=== PATIENT | male | born 1960 | race Asian ===

== ENCOUNTER 2020-06-17 18:04 | Emergency (ER) | payer OTHER ==
[~2020-06-17] VITALS: Ht 175.3 cm; Wt 84.2 kg
--- NOTE | 2020-06-17 18:09 | NUR ---
[id number]
--- NOTE | 2020-06-17 19:03 | NUR ---
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
--- NOTE | 2020-06-17 19:45 | NUR ---
PATIENT RESTING IN BED IN NAD. CALL STEWART IN REACH. DENIES DIZZINESS AT THIS TIME. STATES IT HAPPENED AROUND 3PM TODAY AND LASTED ONLY DURING HIM BENDING DOWN TO LOOK AT SOMETHING. VS REMAIN STABLE WILL CONTINUE TO MONITOR.
[2020-06-17] MEDS ORDERED: ALLO300T PO (19:49)
[2020-06-17] MEDS ORDERED: ATOR-2 PO (19:49)
[2020-06-17] MEDS ORDERED: LISI-167 PO (19:49)
[2020-06-17 20:19] LABS: BASOPHILS % (AUTO) 1 % (0-1); EOSINOPHILS % (AUTO) 3 % (1-7); LYMPHOCYTES % (AUTO) 23 % (22-44); MEAN CORPUSCULAR HEMOGLOBIN 30.4 pg (27.5-34.5); MEAN CORPUSCULAR HGB CONC 33.4 g/dL (33.2-36.2); MEAN PLATELET VOLUME 8.5 fL (7.4-10.4); MONOCYTES % (AUTO) 9 % (2-9); NEUTROPHILS % (AUTO) 64 % (42-75); PLATELET COUNT 241 x10^3/uL (130-400); RED BLOOD COUNT 5.44 x10^6/uL (4.38-5.82); RED CELL DISTRIBUTION WIDTH 14.2 % (9.4-14.8)
[2020-06-17 20:21] LABS: MD NO
[2020-06-17 20:33] LABS: ANION GAP 5 mmol/L (5-15); CALCIUM 9.9 mg/dL (8.5-10.1); CHLORIDE 110 mmol/L (98-107); CREATININE 1.23 mg/dL (0.7-1.3)
--- NOTE | 2020-06-17 20:35 | NUR ---
MRI SCREEN DONE
--- NOTE | 2020-06-17 20:43 | NUR ---
PATIENT RETURNED FROM CT
--- NOTE | 2020-06-17 21:45 | NUR ---
PATIENT IN MRI
--- NOTE | 2020-06-17 22:40 | NUR ---
PATIENT RESTING IN BED IN NAD. CALL STEWART IN REACH. SAFETY MAINTAINED. VS REMAIN STABLE ON RA. PATIENT DENIES DIZZINESS
--- NOTE | 2020-06-17 23:34 | NUR ---
DISCHARGE INSTRUCTIONS REVIEWED WITH PATIENT. HE IS REQUESTING PRINTOUTS OF HIS IMAGING AND LABS FROM THIS VISIT. DR. CASILLAS PROVIDED THESE FOR HIM. DOUBLE-CHECKED WITH SCRIBE TO ENSURE HIPPA BEING MAINTAINED. STEADY GAIT TO PARDEEP. ALL PERSONAL BELONGINGS WITH PATIENT ON DC. NO IV PLACED DURING THIS VISIT Addendum: 06/17/20 at 2336 by ADOUGHTY PATIENT DENIES DIZZINESS/;LIGHTHEADEDNESS DURING AMBULATION AND POSITION CHANGES
[2020-06-17 23:36] VITALS: BP 129/84
== END 2020-06-17 23:39 | disposition home or self-care (01) ==
LOC: ED 21:32
DX: R55 Syncope and collapse (principal); R42 Dizziness and giddiness; R11.0 Nausea; R51.9 Headache, unspecified; R06.89 Other abnormalities of breathing; E11.9 Type 2 diabetes mellitus without complications
CPT/HCPCS: 36415; 70450; 70551; 71045; 80048; 82040; 85025; 93005; 99285